=== PATIENT | female | born 1955 | race Caucasian/White ===

== ENCOUNTER → 2016-09-12 | Outpatient (CLI) | payer OTHER ==
[~2016-09-12] MED LIST: ACETAMINOPHEN PO; ACIPHEX20 MG PO; ALL DAY ALLERGY10 M3 PO; ALPRAZOLAM PO; ALPRAZOLAM0.5 MG PO; CELEXA10 M1 PO; FLAGYL PO; FLONASE 0.05% N16 G1; FLONASE16 GM; HCTZ; HCTZ PO; HYDROCODON-ACE1 EAC9 PO; KCL; LEVOTHROID25 MCG PO; LEVOTHYROXINE25 MCG PO; LIPITOR40 MG PO; LOPID600 MG PO; LORTAB 7.5-5001 TAB PO; METHOCARBAMOL500 MG PO; MOBIC PO; MOBIC15 MG PO; MULTI-VITAMIN1 TAB; OMEPRAZOLE20 M1 PO; PANTOPRAZOLE SO40 MG PO; PERCOCET 10/3251 TAB PO; PHENERGAN25 MG PO; PRAVASTATIN SOD40 MG PO; PREMPRO 0.45/1.1 TAB PO; PRILOSEC; PRILOSEC20 M1 PO; PROAIR HFA8.5 GM INH; PROTONIX PO; RESTORIL15 MG PO; SYMBICORT INH; SYNTHROID PO; SYNTHROID0.05 MG PO; TIZANIDINE HCL4 M1 PO; TRAMADOL HCL50 M1 PO; TYLENOL #3 PO; XANAX1 MG PO; ZETIA; ZETIA PO; ZYRTEC; [UNRECOGNIZED DRUG - REMARK]
--- NOTE | ~2016-09-12 | CR63 ---
[facility] A Service of [facility] & [facility] RADIOLOGY TEXT RESULTS PATIENT: STEVO LOPEZ LOCATION: [facility] : 51 UNIT #: [id number] AGE: [address]: Ama Burks SEX: F ORDER DR: [id number] [facility] [address] [place], [place] [address] [id number] O MR#: [id number] Acc #: [id number] NAME: STEVO LOPEZ. : 1955 SEX: F STUDY DATE/TIME: 09/12/2016 11:28 UNIT: [facility] ROOM: STUDY DESCRIPTION: CR Chest 2 View Attending Physician: Ama Burks A.P.R.N. Referring Physician: Ama Burks A.P.R.N. Ordering Physician: Ama Burks A.P.R.N. Primary Care Physician: Jolie Baugh M.D. MEDICAL IMAGING REPORT This report is preliminary unless electronic signature is present EXAM 2-view chest INDICATIONS Allergic rhinitis. Abnormal pulmonary function test. FINDINGS PA and lateral views of the chest compared to 03/10/2011. Heart and mediastinal contours within normal limits. No focal airspace opacity. Lungs are clear. No pleural effusions. IMPRESSION Negative chest radiograph. Dictated by... Juan A Rodriguez M.D. THIS IS AN ELECTRONICALLY VERIFIED REPORT Juan A Rodriguez M.D. at 09/12/2016 4:31 PM MAXINE/lorne TD: 09/12/2016 13:47 JOB #: [id number] MEDICAL IMAGING REPORT Page 1 of 1 COPY
== END | disposition home or self-care (01) ==
LOC: CRAD 10:54
DX: J30.1 Allergic rhinitis due to pollen (principal); J30.89 Other allergic rhinitis; J98.9 Respiratory disorder, unspecified; R94.2 Abnormal results of pulmonary function studies
CPT/HCPCS: 71020

== ENCOUNTER → 2016-09-25 | Outpatient (CLI) | payer OTHER ==
--- NOTE | ~2016-09-25 | MR32 ---
[facility] A Service of [facility] & [facility] RADIOLOGY TEXT RESULTS PATIENT: STEVO LOPEZ [facility] : 51 UNIT #: [id number] AGE: [address]: Eloy Pace MD SEX: F ORDER DR: [id number] [facility] [address] [place], [place] [address] [id number] O MR#: [id number] Acc #: [id number] NAME: STEVO LOPEZ : 1955 SEX: F STUDY DATE/TIME: 09/25/2016 7:16 UNIT: [facility] ROOM: STUDY DESCRIPTION: MR Cervical Wo Contrast Attending Physician: Eloy Pace M.D. Referring Physician: Eloy Pace M.D. Ordering Physician: Eloy Pace M.D. Primary Care Physician: Jolie Baugh M.D. MRI CENTER REPORT This report is preliminary unless electronic signature is present. EXAM MRI of the cervical spine without contrast dated 09/25/2016. COMPARISON MRI of the cervical spine without contrast dated 01/16/2008. HISTORY Tingling down the right shoulder x 3 months, benign. Numbness in the fingers. TECHNIQUE Multisequence multiplanar imaging of the cervical spine was obtained without contrast. FINDINGS Disc osteophyte complex are at multiple levels. It is worse at C4-C5 with severe canal stenosis and cord compression. Increased T2 signal within the cord is not noted yet. There appears to be bony fusion across C6-C7. It could be postoperative or congenital. Correlate with history. No obvious scarring is noted in the soft tissues to suggest surgery. Chronic. C2-C3: Concentric disc bulge with small central protrusion. Mild mass effect is noted on the adjacent thecal sac. No neural foraminal narrowing. Mild bilateral facet changes. C3-C4: Disc osteophyte complex with superimposed koxgw-xl-boxs subarticular moderate broad-based protrusion which is most prominent in the center. Kjiqvhbp-zy-mnlfue canal stenosis is seen with cord flattening. There is moderate right and sitogkhh-wz-xlnamq left facet hypertrophic change with inferior bilateral neural foraminal narrowing. Superior aspects of the neural foramina are widely patent. [facility] A Service of [facility] RADIOLOGY TEXT RESULTS PATIENT: STEVO LOPEZ [facility] 53 UNIT #: [id number] AGE: [address]: Eloy Pace MD SEX: F ORDER DR: C4-C5: Disc osteophyte complex which is asymmetrically prominent in the xscnj-mi-smcx subarticular region suggestive of broad-based disc protrusion. It is most prominent in the center. Severe canal stenosis and cord compression is noted with severe left and mild right neural foraminal narrowing. Severe canal stenosis and cord compression is noted with mild bilateral facet changes. C5-C6: Disc osteophyte complex with brpu-wt-fcaokijv canal stenosis. Cord is displaced posteriorly. No significant neural foraminal narrowing. Mild bilateral facet changes. C6-C7: Unremarkable. C7-T1: Mild degenerative disc signal loss but otherwise unremarkable. IMPRESSION 1. Significant degenerative changes are noted at multiple levels, worse at C4-C5, followed by C3-C4. 2. Severe canal stenosis is seen with cord compression at C4-C5. It is stable in the last 9 years. No significant cord signal change is noted yet. Mild worsening cannot be excluded in central disc herniation. 3. Refer above to the detailed report. Dictated by... Haley Stern M.D. THIS IS AN ELECTRONICALLY VERIFIED REPORT Haley Stern M.D. at 09/27/2016 3:11 PM CPR/pcl TD: 09/25/2016 18:29 JOB #: [id number] MRI CENTER REPORT Page 1 of 1 COPY
--- NOTE | ~2016-09-25 | CR61 ---
[facility] A Service of [facility] & [facility] RADIOLOGY TEXT RESULTS PATIENT: STEVO LOPEZ LOCATION: [facility] : 51 UNIT #: [id number] AGE: [address]: Eloy Pace MD SEX: F ORDER DR: [id number] [facility] [address] [place], [place] [address] [id number] O MR#: [id number] Acc #: [id number] NAME: STEVO LOPEZ : 1955 SEX: F STUDY DATE/TIME: 09/25/2016 7:54 UNIT: [facility] ROOM: STUDY DESCRIPTION: CR Cervical Spine Min 5 Views Attending Physician: Eloy Pace M.D. Referring Physician: Eloy Pace M.D. Ordering Physician: Eloy Pace M.D. Primary Care Physician: Jolie Baugh M.D. MEDICAL IMAGING REPORT This report is preliminary unless electronic signature is present EXAM Cervical spine series six views 09/25/16 HISTORY Neck pain and right arm tingling paresthesias. Symptoms for three months. FINDINGS There is normal alignment. There is come mid cervical discogenic degenerative change but there is no abnormal motion in flexion and extension. There is no bone erosion or destruction or acute appearing abnormality. IMPRESSION Degenerative changes without acute abnormality. No abnormal motion in flexion or extension. Dictated by... Quinn Salas M.D. THIS IS AN ELECTRONICALLY VERIFIED REPORT Quinn Salas M.D. at 10/01/2016 10:41 AM JAIDEN/neeraj TD: 09/25/2016 10:34 JOB #: [id number] MEDICAL IMAGING REPORT Page 1 of 1 COPY
== END | disposition home or self-care (01) ==
LOC: CMRI 06:39
DX: M48.02 Spinal stenosis, cervical region (principal); M47.812 Spondylosis without myelopathy or radiculopathy, cervical region; G95.20 Unspecified cord compression
CPT/HCPCS: 72050; 72141